=== PATIENT | male | born 1985 | race Hispanic/Latino ===

== ENCOUNTER 2022-04-21 17:06 | Emergency (ER) | payer OTHER, BC ==
[~2022-04-21] VITALS: Ht 172.7 cm; Wt 97.5 kg
[2022-04-21 17:30] VITALS: BP 155/71
[2022-04-21] MEDS ORDERED: HYDROCODONE/ACETAMINOPHEN 5/325 MG TAB PO ONE (17:30)
[2022-04-21] MEDS ORDERED: CYCLOBENZAPRINE HCL 10 MG TABLET PO ONE (17:30)
[2022-04-21] MEDS ORDERED: CYCL10TA16 PO (19:26)
[2022-04-21] MEDS ORDERED: TAMS-1 PO (19:26)
[2022-04-21] MEDS ORDERED: ACET-2247 PO (19:26)
== END 2022-04-21 19:52 | disposition home or self-care (01) ==
LOC: EDH 17:06
DX: S16.1XXA Strain of muscle, fascia and tendon at neck level, initial encounter (principal); S29.012A Strain of muscle and tendon of back wall of thorax, initial encounter; S30.1XXA Contusion of abdominal wall, initial encounter; N20.0 Calculus of kidney; R03.0 Elevated blood-pressure reading, without diagnosis of hypertension; E11.9 Type 2 diabetes mellitus without complications; E78.00 Pure hypercholesterolemia, unspecified; Z90.49 Acquired absence of other specified parts of digestive tract; Z98.890 Other specified postprocedural states; Z79.899 Other long term (current) drug therapy; V49.49XA Driver injured in collision with other motor vehicles in traffic accident, initial encounter; Y93.89 Activity, other specified; Y92.413 State road as the place of occurrence of the external cause; Y99.8 Other external cause status
CPT/HCPCS: 72125; 72128; 74176